=== PATIENT | male | born 1985 | race African-American/Black ===

== ENCOUNTER → 2016-06-20 08:49 | Day surgery (SDC) | payer BC ==
--- NOTE | 2016-06-11 21:50 | HP ---
PREOPERATIVE HISTORY AND PHYSICAL: DATE OF OFFICE VISIT/ENCOUNTER: 06/11/16 DATE OF SURGERY/ADMISSION: 06/20/16 ATTENDING SURGEON: Elaine Carolina MD PROCEDURE: Right wrist ganglion cyst excision. CHIEF COMPLAINT: Cyst, right wrist. HISTORY OF PRESENT ILLNESS: This is a 30-year-old male complaining of a cyst present on the volar aspect of his right wrist. It has been present for a couple of years and it is growing increasingly larger and bothersome. He would like to have it removed. He denies any specific injury to this wrist. He denies any numbness or tingling associated with it. He has a history of a left wrist ganglion cyst excision and did well that. He is interested in pursuing excision of the right wrist ganglion cyst at this time. He feels that it is affecting his strength. This is his dominant hand. PAST MEDICAL HISTORY: Unremarkable. PAST SURGICAL HISTORY: Left wrist ganglion cyst excision. MEDICATIONS: 1. Multivitamin. 2. . 3. Amino acids. 4. Fish oil. ALLERGIES: No known drug allergies. Allergic to SHELLF[employer] D[employer]IVED PRODUCTS. FAMILY MEDICAL HISTORY: Diabetes and hypertension. SOCIAL HISTORY: The patient is employed at the [employer]. He denies tobacco and recreational drug use. Does admit to alcohol use on rare occasion. REVIEW OF SYSTEMS: General: Negative for fevers, chills, or night sweats. No known anesthesia problems. HEENT: Negative for headache, lightheadedness, or syncopal episodes. Integumentary: Negative for abrasions, lesions, or open wounds. Cardiothoracic: Negative for chest pain, palpitations, or edema. Negative for hypertension. Pulmonary: Negative for shortness of breath with exertion, chronic cough, or COPD. GI: Negative for nausea, vomiting, diarrhea , constipation, or GERD. : Negative for nocturia, urinary frequency, urgency , history of UTIs, or kidney problems. Musculoskeletal: Positive for current complaint. Negative for chronic or intermittent back pain. No history of fractures. Neurological: Negative for paraesthesias, numbness, history of seizure, stroke, or epilepsy. Endocrine: Negative for diabetes or thyroid issues. Hematologic: Negative for easy bruising, anemia, excessive bleeding, or history of DVT. Infectious Disease: Negative for history of MRSA, hepatitis C, or HIV. PHYSICAL EXAMINATION GENERAL: Well-developed, well-nourished 30-year-old male, in no acute distress. VITAL SIGNS: Height 5 feet 11 inches, weight 203 pounds, pulse rate 59, blood pressure 124/76. HEENT: Normocephalic, atraumatic. Pupils are equal, round, and reactive to light and accommodation. Extraocular movements are intact. NECK: Supple. No palpable lymph nodes. Throat is clear. PULMONARY: Lungs are clear to auscultation bilaterally. No wheezes, rales, or rhonchi. CARDIOTHORACIC: Regular rate and rhythm. S1, S2. No murmurs, rubs, or gallops. No edema. ABDOMEN: Positive bowel sounds, soft, nontender. MUSCULOSKELETAL: On exam of the right wrist, there is a 2 x 1 cm in diameter subcutaneous firm, mobile and cystic mass on the volar radial aspect of the wrist. It is mildly tender to palpation. It does not inhibit range of motion of the wrist, but the patient gets increased pain from the cyst with full flexion. He has full flexion and extension of his fingers and neurovascular function is intact. NEUROLOGICAL: Alert and oriented x3. Cranial nerves II through XII are intact. Sensation is intact to light touch. ASSESSMENT: Right wrist volar ganglion. PLAN: The patient is scheduled to undergo a right wrist ganglion cyst excision with Dr. Carolina on 06/20/16. He will return to the office in 10 to 14 days postop for followup and suture removal. A prescription for Ultracet was e- scribed to the patient's pharmacy for postoperative pain management. ANGELO POZO [id number]/[facility] #: [id number] MTDD
[~2016-06-20 08:49] MED LIST: Buffered Lidocaine 1% SYRIN* 3 ML/SYR SYRINGE INTRADERM ONE; Lidocaine 1% INJ* 10 MG/ML 30 ML SDV ONE; Midazolam* 1 MG/ML 5 ML VIAL (5 MG) ONE; fentaNYL* 50 MCG/ML 2 ML VIAL (100 MCG VIAL) ONE
[2016-06-20 11:15] VITALS: BP 127/68
--- NOTE | 2016-06-21 02:22 | OP ---
DATE OF OPERATION: 06/20/16 [facility] DATE OF : 81 SURGEON: Elaine Carolina MD SKEIN STRAIGHTENER: ANGELO Herman ANESTHESIOLOGIST: Eugenio Cornejo MD ANESTHESIA: Local MAC. PRE-OP DIAGNOSIS: Right volar wrist ganglion. POST-OP DIAGNOSIS: Right volar wrist ganglion. OPERATIVE PROCEDURE: Removal of right volar wrist ganglion. INDICATIONS: This is a 30-year-old male with a large ganglion cyst on the volar radial aspect of his right wrist. It is painful and he presents for removal. ESTIMATED BLOOD LOSS: Zero. TOURNIQUET TIME: About 15 minutes. DESCRIPTION OF PROCEDURE: The patient was brought to the operating room and was given a sedation anesthetic and a local infiltration of 10 cc of 1% plain lidocaine. Skin of his right upper extremity was prepped and draped in the usual sterile fashion. The hand and forearm were exsanguinated and the tourniquet elevated to 250 mmHg. A Chevron incision was made centered over the mass. We carefully dissected down to the ganglion cyst which was emanating from the radiocarpal joint and from the FCR tendon sheath. It was also closely adherent to the radial artery. The artery was carefully dissected off the cyst. The FCR tendon sheath was incised and then the stalk of the ganglion was traced down to the STT joint and was removed with a small portion of the joint capsule and then the edges of the capsule were cauterized with the Bovie. The wound was irrigated and the skin edges were reapproximated with 4-0 nylon suture. The wound was dressed with Xeroform, 4x4's, Webril, and an Jorge wrap. The patient tolerated the procedure well and was brought to the recovery room in good condition. [id number]/[facility] #: [id number] MTDD
== END | disposition home or self-care (01) ==
LOC: OREAST 08:49
PROVIDERS: ATTEND Orthopaedic Surgery
DX: M67.431 Ganglion, right wrist (principal)
CPT/HCPCS: 88304; J2001; J2250; J3010